=== PATIENT | female | born 1990 | race Caucasian/White ===

== ENCOUNTER 2017-07-16 12:21 | Emergency (ER) | END 2017-07-16 18:36 | disposition home or self-care (01) ==

== ENCOUNTER 2019-01-12 12:59 | Emergency (ER) | payer MEDICAID, OTHER ==
[~2019-01-12] VITALS: Ht 170.2 cm; Wt 100.0 kg
[~2019-01-12 12:59] MED LIST: HYDR-3498 PO; HYDR-4011 PO; IBUP-1542 PO; METF500T24 PO; NITR-58 PO
[2019-01-12 13:23] VITALS: Ht 170.2 cm; Wt 100.0 kg
== END 2019-01-12 15:43 | disposition home or self-care (01) ==
LOC: E/R 12:59
DX: M25.561 Pain in right knee (principal); Z79.84 Long term (current) use of oral hypoglycemic drugs
CPT/HCPCS: 76536; Z7502